=== PATIENT | female | born 1955 | race Caucasian/White ===

== ENCOUNTER 2019-04-07 14:07 | Inpatient (IN) | payer MEDICARE, BC ==
[~2019-04-07] VITALS: Ht 157.5 cm; Wt 71.7 kg
[2019-04-07 12:30] VITALS: BP 150/98
[2019-04-07] MEDS ORDERED: ACETAMINOPHEN 325 MG TABLET PO PRN (15:30)
[2019-04-07] MEDS ORDERED: BLOOD SUGAR DIAGNOSTIC 1 EACH STRIP IN ONE (15:30)
[2019-04-07] MEDS ORDERED: MAG HYDROX/AL HYDROX/SIMETH 30 ML UDC PO PRN (15:30)
[2019-04-07] MEDS ORDERED: LORAZEPAM 0.5 MG TABLET PO PRN (15:30)
[2019-04-07] MEDS ORDERED: TEMAZEPAM 7.5 MG CAPSULE PO PRN (15:30)
[2019-04-07] MEDS ORDERED: MAGNESIUM HYDROXIDE 30 ML UDC PO PRN (15:30)
[2019-04-07 16:00] VITALS: BP 150/98
[2019-04-07 20:32] VITALS: BP 136/81
[2019-04-07] MEDS ORDERED: AMITRIPTYLINE HCL 10 MG TABLET PO SCH (22:00)
[2019-04-08 08:00] VITALS: BP 149/87
--- NOTE | 2019-04-08 08:01 | NUR ---
WOUND CARE CONSULT: PT REFUSED SKIN ASSESSMENT. ADMISSION PHOTO SHOWS SOME REDNESS UNDER BREAST. RECOMMENDATIONS MADE BASED ON PHOTO DOCUMENTATION. WILL SEE PRN. IN AGREEMENT WITH PLAN OF CARE. CURRENT RUPAL SCORE IS 15.
[2019-04-08] MEDS ORDERED: AMIT10TA6 PO (08:24)
[2019-04-08] MEDS ORDERED: PARO20TA7 PO (08:24)
[2019-04-08] MEDS ORDERED: AMLO10TA4 PO (08:24)
[2019-04-08] MEDS ORDERED: HYDR12.5 PO (08:24)
[2019-04-08] MEDS ORDERED: LOSA100T31 PO (08:24)
[2019-04-08] MEDS ORDERED: Z GUARD REMEDY 2 OZ OINT TP PRN (08:30)
[2019-04-08 08:33] LABS: THYROID STIMULATING HORMONE 1.588 uIU/mL (0.358-3.74)
[2019-04-08] MEDS: HYDROCHLOROTHIAZIDE 25 MG TABLET PO SCH (08:42)
[2019-04-08] MEDS: LOSARTAN POTASSIUM 50 MG TABLET PO SCH (08:42)
[2019-04-08] MEDS: Z GUARD REMEDY 2 OZ OINT TP SCH (08:43)
[2019-04-08] MEDS: AMLODIPINE BESYLATE 10 MG TABLET PO SCH (08:43)
--- NOTE | 2019-04-08 08:43 | NUR ---
PATIENT REFUSED ALL 0900 MEDS INCLUDING ZGUARD APPLICATION
[2019-04-08 08:49] LABS: ALBUMIN 3.2 g/dL (3.4-5.0); BILIRUBIN,TOTAL 0.5 mg/dL (0.2-1.0); CALCIUM, SERUM 9.1 mg/dL (8.5-10.1); CREATININE 0.8 mg/dL (0.6-1.3); PHOSPHORUS 2.9 mg/dL (2.5-4.9); POTASSIUM 3.4 mmol/L (3.5-5.1)
[2019-04-08] MEDS ORDERED: PAROXETINE HCL 10 MG TABLET PO SCH (09:00)
[2019-04-08] MEDS ORDERED: POTASSIUM CHLORIDE 20 MEQ TAB.PRT.SR PO SCH (10:00)
--- NOTE | 2019-04-08 10:30 | NUR ---
PATIENT REFUSED POTASSIUM SUPPLEMENT. EXPLAINED THE IMPORTANCE OF TAKING IT BUT PATIENT CONTINUES TO REFUSE.
[2019-04-08] MEDS: BENZTROPINE MESYLATE (1 MG) 1 MG TABLET PO SCH ×2 (12:00→17:00)
[2019-04-08] MEDS ORDERED: LORAZEPAM 0.5 MG TABLET PO PRN (12:00)
[2019-04-08] MEDS: risperiDONE-M 0.5 MG TAB.RAPDIS PO SCH ×2 (12:00→17:00)
--- NOTE | 2019-04-08 13:40 | NUR ---
PATIENT REFUSED 1300 PSYCH MEDS
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
--- NOTE | 2019-04-08 15:43 | NUR ---
GROUP NOTE: SW encouraged pt to attend group on this present day discussing "discharge planning." Pt unable to attend due to current psychotic symptoms. Pt refusing medications and stating she is dying. SW attempted to provide intervention but pt became mute and did not respond.
[2019-04-08 15:48] VITALS: BP 151/89
--- NOTE | 2019-04-08 18:12 | NUR ---
INFORMED DR CORMIER THIS MORNING THAT PATIENT HALLUCINATES WHEN SHE IS TAKING REMERON AND SEROQUEL. ALSO, PATIENT'S FAMILY WANTED TO SEE HER OUTSIDE VISITING HOURS DUE TO COMMUTE ISSUES. MD ORDERED VISITATION PRIVILEGES OUTSIDE VISITING HOURS. INFORMED DR LAKE THAT PATIENT HAS NOT BEEN EATING OR DRINKING FOR THE PAST FEW DAYS. ALSO THAT SHE REFUSED HER AM BP MEDS ALONG WITH THE POTASSIUM. INFORMED MD THAT PER PATIENT'S SISTER, PATIENT HAS A HISTORY OF DVT AND WAS TAKING XARELTO UP UNTIL A FEW MONTHS AGO AND THAT PATIENT IS REFUSING TO GET OUT OF BED. DR LAKE ORDERED LOVENOX 40 MG SUBCUTANEOUSLY DAILY STARTING TONIGHT.
[2019-04-08 20:12] VITALS: BP 149/96
[2019-04-08] MEDS: ENOXAPARIN SODIUM 40 MG/0.4 ML DISP.SYRIN SQ SCH (21:00)
--- NOTE | 2019-04-08 21:22 | NUR ---
RN NOTES: PT. REFUSED HS MEDS LOVENEX 0.4 ML .SQ, ENCOURAGED X3 , EXPLINED RISKS AND BNEFITS STILL REFUSED .
[2019-04-08 21:30] VITALS: BP 133/82
[2019-04-09 07:48] LABS: CALCIUM, SERUM 9.4 mg/dL (8.5-10.1); CREATININE 0.8 mg/dL (0.6-1.3); POTASSIUM 3.5 mmol/L (3.5-5.1)
[2019-04-09 08:00] VITALS: BP 151/94
[2019-04-09] MEDS: BENZTROPINE MESYLATE (1 MG) 1 MG TABLET PO SCH ×2 (08:30→17:00)
[2019-04-09] MEDS: LOSARTAN POTASSIUM 50 MG TABLET PO SCH (08:30)
[2019-04-09] MEDS: HYDROCHLOROTHIAZIDE 25 MG TABLET PO SCH (08:30)
[2019-04-09] MEDS: Z GUARD REMEDY 2 OZ OINT TP SCH (08:30)
[2019-04-09] MEDS: risperiDONE-M 0.5 MG TAB.RAPDIS PO SCH ×2 (08:30→17:00)
[2019-04-09] MEDS: AMLODIPINE BESYLATE 10 MG TABLET PO SCH (08:30)
--- NOTE | 2019-04-09 08:30 | NUR ---
PATIENT REFUSED ALL OF 0900 MEDS INCLUDING BP MEDS. EXPLAINED THE IMPORTANCE OF TAKING THE MEDICATIONS BUT PATIENT CONTINUES TO REFUSE. PATIENT STATES THAT SHE CANT SWALLOW BUT WHEN I OFFER TO CRUSH HER PILLS SHE CONTINUES TO REFUSE AND WANTS ME TO LEAVE THE ROOM. ALSO EXPLAINED THE IMPORTANCE OF LOVENOX BUT PATIENT DOES NOT WANT TO BE BOTHERED. PATIENT IS REFUSING FULL BODY SKIN ASSESSMENT ALONG WITH CARE FOR ADL.
[2019-04-09] MEDS ORDERED: IV D5/0.45 NACL 1,000 ML IV SCH (09:30)
[2019-04-09] MEDS ORDERED: IV D5/0.45 NACL 1,000 ML IV ONE (09:30)
--- NOTE | 2019-04-09 09:53 | NUR ---
INITIAL DISCHARGE PLAN: Per sister Vidya [phone] pt currently lives at home [address] [place] [address] with her ex boyfriend but needs placement as pt is unable to care for herself. SAMUEL will help form a safe and proper discharge in collaboration with .
--- NOTE | 2019-04-09 11:12 | NUR ---
UR NOTE: AUTHORIZATION#[id number] OBTAINED FROM LAQUITA Lawrence WITH [facility] AT [phone]. 3 DAYS APPROVED FROM 04/10/2019 TO 04/12/2019. WITH REVIEW DUE ON Monday04/12/2019.
--- NOTE | 2019-04-09 12:58 | NUR ---
DR LAKE AWARE THAT PATIENT IS REFUSING ALL MEDS INCLUDING LOVENOX ALONG WITH PLAN OF CARE. IVF ORDERED (D5 1/2 NS) AT 80CC/HR. IV STARTED AT PATIENT'S RFA. DR CORMIER ALSO AWARE OF PATIENT'S CONDITION AND REFUSAL OF MEDICATIONS.
[2019-04-09 16:00] VITALS: BP 151/99
--- NOTE | 2019-04-09 19:12 | NUR ---
INFORMED DR CORMIER PATIENT HAS REACTION TO CERTAIN DRUGS. PER FAMILY, PATIENT HAS HALLUCINATIONS WITH TRAZODONE AND SEIZURES WITH HALDOL.
[2019-04-09 20:30] VITALS: BP 152/92
[2019-04-09] MEDS: ENOXAPARIN SODIUM 40 MG/0.4 ML DISP.SYRIN SQ SCH (22:30)
[2019-04-10 08:00] VITALS: BP 158/97
[2019-04-10] MEDS: HYDROCHLOROTHIAZIDE 25 MG TABLET PO SCH (08:24)
[2019-04-10] MEDS: BENZTROPINE MESYLATE (1 MG) 1 MG TABLET PO SCH ×2 (08:24→16:42)
[2019-04-10] MEDS: LOSARTAN POTASSIUM 50 MG TABLET PO SCH (08:24)
[2019-04-10] MEDS: AMLODIPINE BESYLATE 10 MG TABLET PO SCH (08:25)
[2019-04-10] MEDS: Z GUARD REMEDY 2 OZ OINT TP SCH (08:25)
[2019-04-10] MEDS: risperiDONE-M 0.5 MG TAB.RAPDIS PO SCH ×2 (08:25→16:42)
[2019-04-10] MEDS ORDERED: IV D5/0.45 NACL 1,000 ML IV ONE (10:00)
[2019-04-10 12:24] LABS: BASOPHILS # (AUTO) 0.1 /CMM (0.0-0.2); HEMATOCRIT 45 % (33-45); HEMOGLOBIN 15.2 g/dL (11.5-14.8); LYMPHOCYTES # (AUTO) 0.5 /CMM (0.8-4.8); LYMPHOCYTES % (AUTO) 4.9 % (20.0-44.0); MEAN CORPUSCULAR HGB CONC 34 g/dl (31.0-36.0); MEAN CORPUSCULAR VOLUME 90 fL (82-100); MONOCYTES # (AUTO) 0.4 /CMM (0.1-1.30); MONOCYTES % (AUTO) 4.4 % (2.0-12.0); NEUTROPHILS # (AUTO) 8.6 /CMM (1.8-8.9); NEUTROPHILS % (AUTO) 89.7 % (43.0-81.0); PLATELET COUNT (AUTO) 377 /CMM (150-450); RED BLOOD CELL COUNT(AUTO) 5.04 MIL/uL (4.0-5.2); WHITE BLOOD COUNT (AUTO) 9.6 K/uL (4.3-11.0)
[2019-04-10 12:37] LABS: ALBUMIN 3.3 g/dL (3.4-5.0); BILIRUBIN,TOTAL 0.5 mg/dL (0.2-1.0); CALCIUM, SERUM 9.2 mg/dL (8.5-10.1); CREATININE 0.8 mg/dL (0.6-1.3); MAGNESIUM 2.2 mg/dL (1.8-2.4); PHOSPHORUS 2.1 mg/dL (2.5-4.9); POTASSIUM 3.1 mmol/L (3.5-5.1)
[2019-04-10 12:47] LABS: THYROID STIMULATING HORMONE 0.724 uIU/mL (0.358-3.74)
[2019-04-10] MEDS ORDERED: K PHOS NEUTRAL 250 MG TABLET PO ONE (15:30)
[2019-04-10 16:00] VITALS: BP 158/97
--- NOTE | 2019-04-10 19:50 | NUR ---
RN GPS NOTES RECEIVED ON BED,NON VERBAL,OPEN EYES TO VERBAL STIMULI.PRESENTLY ON IVF D5 1/2 NS AT 75ML/HR RATE DUE TO ABNORMAL LABS.REFUSED MEDS, FOODS.REISE CASE JUST FILED TODAY.WILL CONTINUE TO MONITOR STATUS.
[2019-04-10 20:26] VITALS: BP 157/86
--- NOTE | 2019-04-10 21:00 | NUR ---
GPS RN NOTES DUE LOVENOX 40MG SQ GIVEN ON LEFT LOWER ABDOMEN.PLATELET WITH IN NORMAL LIMITS
[2019-04-10] MEDS: ENOXAPARIN SODIUM 40 MG/0.4 ML DISP.SYRIN SQ SCH (21:28)
--- NOTE | 2019-04-11 03:00 | NUR ---
GPS RN NOTES CALM AND QUIET ON BED,EYES OPEN
[2019-04-11 08:00] VITALS: BP 158/82
[2019-04-11] MEDS: BENZTROPINE MESYLATE (1 MG) 1 MG TABLET PO SCH ×2 (09:00→17:00)
[2019-04-11] MEDS: AMLODIPINE BESYLATE 10 MG TABLET PO SCH (09:00)
[2019-04-11] MEDS: LOSARTAN POTASSIUM 50 MG TABLET PO SCH (09:00)
[2019-04-11] MEDS: risperiDONE-M 0.5 MG TAB.RAPDIS PO SCH ×2 (09:00→17:00)
[2019-04-11] MEDS: Z GUARD REMEDY 2 OZ OINT TP SCH (09:00)
[2019-04-11] MEDS: HYDROCHLOROTHIAZIDE 25 MG TABLET PO SCH (09:00)
--- NOTE | 2019-04-11 11:33 | NUR ---
FAMILY CONTACT: SAMUEL spoke with pts sister Vidya [phone] to inform her MD has filed a RIESE petition for medication capacity. Sister agreed with treatment plan.
--- NOTE | 2019-04-11 14:00 | NUR ---
rn note spoke with Dr Farris re potassium being low yesterday, and not replaced, pt refusing po meds, and any food or drink. for the past week or so, that she had d51/2 ns 1L yesterday, and no orders for labs today. he said he will order ivf and labs. will carry out order.
[2019-04-11 16:00] VITALS: BP 158/79
[2019-04-11] MEDS: ENOXAPARIN SODIUM 40 MG/0.4 ML DISP.SYRIN SQ SCH (20:30)
[2019-04-11 20:48] VITALS: BP 150/79
--- NOTE | 2019-04-12 05:49 | NUR ---
rn gps notes ivf complete iv site to right FA removed, no redness, no infiltration present.
--- NOTE | 2019-04-12 07:30 | NUR ---
INITIAL Dr Farris aware of potassium being low yesterday, and not replaced, pt refusing breakfast. Reported for the past week or so pt does not want to eat. RFA PIV was removed last night not replaced fluids stopped. pt resting in bed respiration even responses to name will continue to monitor.
[2019-04-12 07:54] LABS: BASOPHILS # (AUTO) 0.1 /CMM (0.0-0.2); BASOPHILS % (AUTO) 0.8 % (0.0-2.0); EOSINOPHILS % (AUTO) 0.2 % (0.0-6.0); HEMATOCRIT 42 % (33-45); HEMOGLOBIN 14.1 g/dL (11.5-14.8); LYMPHOCYTES # (AUTO) 0.6 /CMM (0.8-4.8); LYMPHOCYTES % (AUTO) 9.6 % (20.0-44.0); MEAN CORPUSCULAR HGB CONC 33 g/dl (31.0-36.0); MEAN CORPUSCULAR VOLUME 91 fL (82-100); MONOCYTES # (AUTO) 0.4 /CMM (0.1-1.30); MONOCYTES % (AUTO) 5.3 % (2.0-12.0); NEUTROPHILS # (AUTO) 5.6 /CMM (1.8-8.9); NEUTROPHILS % (AUTO) 84.1 % (43.0-81.0); PLATELET COUNT (AUTO) 300 /CMM (150-450); RED BLOOD CELL COUNT(AUTO) 4.68 MIL/uL (4.0-5.2); WHITE BLOOD COUNT (AUTO) 6.7 K/uL (4.3-11.0)
[2019-04-12 07:55] LABS: CALCIUM, SERUM 8.4 mg/dL (8.5-10.1); CREATININE 0.7 mg/dL (0.6-1.3); MAGNESIUM 2.2 mg/dL (1.8-2.4); PHOSPHORUS 2.2 mg/dL (2.5-4.9); POTASSIUM 3.5 mmol/L (3.5-5.1)
[2019-04-12 08:00] VITALS: BP 158/87
[2019-04-12] MEDS: HYDROCHLOROTHIAZIDE 25 MG TABLET PO SCH (09:00)
[2019-04-12] MEDS: LOSARTAN POTASSIUM 50 MG TABLET PO SCH (09:00)
[2019-04-12] MEDS: AMLODIPINE BESYLATE 10 MG TABLET PO SCH (09:00)
[2019-04-12] MEDS: BENZTROPINE MESYLATE (1 MG) 1 MG TABLET PO SCH ×2 (09:00→16:12)
[2019-04-12] MEDS: risperiDONE-M 0.5 MG TAB.RAPDIS PO SCH ×3 (09:00→21:00)
[2019-04-12] MEDS: Z GUARD REMEDY 2 OZ OINT TP SCH (09:02)
--- NOTE | 2019-04-12 09:11 | NUR ---
PT REFUSED ALL MEDICATIONS CALL MEDICAL MANAGEMENT THROUGH [facility]
--- NOTE | 2019-04-12 10:02 | NUR ---
PT REFUSED PO POTASSIUM
--- NOTE | 2019-04-12 10:08 | NUR ---
STILL WAITNG FOR OSWALDO, PA CALL BACK
--- NOTE | 2019-04-12 11:09 | NUR ---
PATIENCE CHACON ORDERED PIV WITH D5W AND KCL PT HAS NO IV CURRENTLY
[2019-04-12] MEDS ORDERED: Potassium Chloride 40 MEQ in IV D5W 1,000 ML IV PRN (11:30)
[2019-04-12] MEDS ORDERED: K PHOS NEUTRAL 250 MG TABLET PO ONE (12:00)
--- NOTE | 2019-04-12 12:49 | NUR ---
UR NOTE: AUTHORIZATION#[id number] OBTAINED FROM [place] WITH [facility] AT [phone]. 3 DAYS APPROVED FROM 04/13/2019 TO 04/15/2019. WITH REVIEW DUE ON Monday04/15/2019.
--- NOTE | 2019-04-12 12:52 | NUR ---
FAMILY CONTACT: SAMUEL contacted pts sister Vidya [phone] and left a voicemail informing her pt is now RIESED.
--- NOTE | 2019-04-12 15:12 | NUR ---
ESTABLISHED PIV # 20 GAUGE IN LEFT ARM. WILL START FLUIDS WHEN SITE MEDICAL DIRECTOR AVAILABLE PT AGITATED AND NEEDS TO BE WATCHED.
[2019-04-12 16:00] VITALS: BP 163/92
[2019-04-12] MEDS: OLANZAPINE 10 MG VIAL IM PRN (16:10)
--- NOTE | 2019-04-12 19:13 | NUR ---
CLOSING PT KEPT SAFE PIV STARTED ON FLUID DRIP D5W WITH 40 MEQ OF K TRA 80 ML/HR. PT REFUSED MEDICATIONS AND FOOD ALL SHIFT MD AWARE.
[2019-04-12 21:13] VITALS: BP 153/78
[2019-04-12] MEDS: ENOXAPARIN SODIUM 40 MG/0.4 ML DISP.SYRIN SQ SCH (21:19)
[2019-04-13 08:00] VITALS: BP 157/78
[2019-04-13] MEDS: LOSARTAN POTASSIUM 50 MG TABLET PO SCH (08:12)
[2019-04-13] MEDS: HYDROCHLOROTHIAZIDE 25 MG TABLET PO SCH (08:12)
[2019-04-13] MEDS: AMLODIPINE BESYLATE 10 MG TABLET PO SCH (08:13)
[2019-04-13] MEDS: BENZTROPINE MESYLATE (1 MG) 1 MG TABLET PO SCH ×2 (08:13→17:00)
[2019-04-13] MEDS: risperiDONE-M 0.5 MG TAB.RAPDIS PO SCH ×2 (08:13→21:00)
--- NOTE | 2019-04-13 08:13 | NUR ---
GPS RN NOTE: PT REFUSED ALL AM MEDICATIONS. PT REEDUCATED AND EXPLAINED RISKS AND BENEFITS. ELGIN EXPLAINED. PATIENT CONTINUE TO REFUSE. PATIENT IS ALSO REFUSING TO EAT BREAKFAST. COVERING HER MOUTH. WITH 1:1 SITTER. WILL CONTINUE TO MONITOR Q15 FOR SAFETY AND BEHAVIOR
[2019-04-13] MEDS: OLANZAPINE 10 MG VIAL IM PRN ×2 (08:45→20:36)
[2019-04-13] MEDS: Z GUARD REMEDY 2 OZ OINT TP SCH (09:56)
[2019-04-13 11:12] LABS: BASOPHILS % (AUTO) 0.7 % (0.0-2.0); EOSINOPHILS % (AUTO) 2.3 % (0.0-6.0); HEMATOCRIT 43 % (33-45); HEMOGLOBIN 14.5 g/dL (11.5-14.8); LYMPHOCYTES # (AUTO) 0.7 /CMM (0.8-4.8); LYMPHOCYTES % (AUTO) 11.1 % (20.0-44.0); MEAN CORPUSCULAR HGB CONC 34 g/dl (31.0-36.0); MEAN CORPUSCULAR VOLUME 91 fL (82-100); MONOCYTES # (AUTO) 0.3 /CMM (0.1-1.30); NEUTROPHILS # (AUTO) 5.5 /CMM (1.8-8.9); NEUTROPHILS % (AUTO) 81.9 % (43.0-81.0); PLATELET COUNT (AUTO) 285 /CMM (150-450); RED BLOOD CELL COUNT(AUTO) 4.71 MIL/uL (4.0-5.2); WHITE BLOOD COUNT (AUTO) 6.7 K/uL (4.3-11.0)
[2019-04-13 11:32] LABS: CALCIUM, SERUM 8.7 mg/dL (8.5-10.1); CREATININE 0.7 mg/dL (0.6-1.3); MAGNESIUM 2.2 mg/dL (1.8-2.4); PHOSPHORUS 2.4 mg/dL (2.5-4.9); POTASSIUM 3.7 mmol/L (3.5-5.1)
--- NOTE | 2019-04-13 15:44 | NUR ---
SPOKE TO DON TAX COLLECTOR OF [facility] AND PT. GOT ACCEPTED UNDER THE SERVICES OF DR. CARLOS TAVERA. DR. REED MADE AWARE AND ORDERED TO D/C PT/ TO [facility], [facility] UN[facility] UNDER THE SERVICES OF DR. CARLOS TAVERA. LEONARD NUNEZ MADE AWARE. Addendum: 04/13/19 at 1556 by PINKY CASTANEDA RN THIS DOCUMENTATION IS NOT FOR THIS PT.
[2019-04-13 16:00] VITALS: BP 164/98
[2019-04-13 20:21] VITALS: BP 155/65
--- NOTE | 2019-04-13 20:27 | NUR ---
RN NOTES PATIENT REFISED RISPERDAL-M 1MG PO. ZYPREXA 3MG IM GIVEN ORDERED
[2019-04-13] MEDS: ENOXAPARIN SODIUM 40 MG/0.4 ML DISP.SYRIN SQ SCH (20:37)
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
[2019-04-14 08:00] VITALS: BP 149/84
[2019-04-14] MEDS: BENZTROPINE MESYLATE (1 MG) 1 MG TABLET PO SCH ×2 (08:53→17:00)
[2019-04-14] MEDS: HYDROCHLOROTHIAZIDE 25 MG TABLET PO SCH (08:56)
[2019-04-14] MEDS: LOSARTAN POTASSIUM 50 MG TABLET PO SCH (08:56)
[2019-04-14] MEDS: risperiDONE-M 0.5 MG TAB.RAPDIS PO SCH (08:57)
[2019-04-14] MEDS: AMLODIPINE BESYLATE 10 MG TABLET PO SCH (08:57)
[2019-04-14] MEDS: Z GUARD REMEDY 2 OZ OINT TP SCH (08:58)
[2019-04-14] MEDS: OLANZAPINE 10 MG VIAL IM PRN (09:02)
--- NOTE | 2019-04-14 09:03 | NUR ---
RN NOTES PATIENT REFUSED TO TAKE SCHEDULED MEDICATION, EVEN REFUSED TO TALK, EAT AND DRINK. ADMINISTERED ZYPREXA 3 MG/ML IM PRESCRIBED PER REFUSAL SCHEDULED PO MEDICATION. 1;1 SITTER NEXT TO THE BED. SAFETY PRECAUTION MAINTAINED ALL THE TIME.
--- NOTE | 2019-04-14 15:50 | NUR ---
RN NOTES TRANSFERRED PATIENT TO THE GP OVF ROOM 206 A. PATIENT STABLE, A/O X1, ON MOOD SELECTIVELY MOOT, FLAT AFFECT, V/S WNL, NO ACUTE RESPIRATORY DISTRESS, 1:1 SITTER NEXT TO THE BED FOR SAFETY. REPORT GIVEN FRANCISCA THOMPSON TO FOLLOW PLAN OF CARE.
--- NOTE | 2019-04-14 15:50 | NUR ---
RN NOTES: GPS OVERFLOW RECEIVED PATIENT FROM 220-1. REPORT GIVEN BY FRANCISCA ZUNIGA. PATIENT IS AWAKE, SELECTIVELY MUTE. NODS HEAD TO YES OR NO QUESTIONS. FOLLOWS COMMAND. NOT IN ANY FORM OF DISTRESS. NO SOB. NO S/S OF PAIN OR DISCOMFORT. IV ACCESS ON LEFT FA GAUGE 20, INTACT AND PATENT, NO REDNESS, NO INFILTRATION. KEPT PATIENT SAFE AND COMFORTABLE. NO SI/HI NOTED. BED IN LOW AND LOCKED POSITION. SIDERAILS UPX2. SITTER AT BEDSIDE FOR SAFETY. WILL CONT TO MONITOR ACCORDINGLY
[2019-04-14 16:00] VITALS: BP 143/73
--- NOTE | 2019-04-14 19:08 | NUR ---
rn notes Ayad Farris spoke with family, Vidya Vo, and explained that patient needs NGTube for feeding. Family gave authorization for NGtube placement.
--- NOTE | 2019-04-14 19:10 | NUR ---
rn notes Ayad Farris DNP at bedside doing NGtube placement. Ngtube was successfully placed. Xray for confirmation of placement ordered.
--- NOTE | 2019-04-14 19:29 | NUR ---
RN NOTES PATIENT IN STABLE CONDITION. ALL NEEDS ATTENDED AND PROVIDED. SITTER AT BEDSIDE FOR SAFETY. BED IN LOW/LOCKED POSITION. ENDORSDED TO NIGHT RN FOR LOLA.
--- NOTE | 2019-04-14 20:00 | NUR ---
RN NOTES DISCHARGED PATIENT TO [facility]. SAME ROOM 206-1. DISCHARGED INSTRUCTIONS GIVEN. DC PAPERWORKS AND ALL BELONGINGS TRANFERRED WITH THE PATIENT TO [facility] FLOOR. REFUSED SKIN PHOTOS.REPORT GIVEN TO FRANCISCA HYMAN. CONTINUE HOLD AND CONTINUE PSYCH MEDS
[2019-04-15] MEDS ORDERED: LORA-259 PO (07:45)
[2019-04-15] MEDS ORDERED: RISP0.2515 PO (07:45)
[2019-04-15] MEDS ORDERED: ENOX40DI9 SQ (07:45)
[2019-04-15] MEDS ORDERED: ACET-868 PO (07:45)
[2019-04-15] MEDS ORDERED: BENZ0.5T43 PO (07:45)
[2019-04-15] MEDS ORDERED: MAG30ORA PO (07:45)
[2019-04-15] MEDS ORDERED: TEMA7.5C12 PO (07:45)
[2019-04-15] MEDS ORDERED: MAGN400O6 PO (07:45)
[2019-04-15] MEDS ORDERED: OLAN10VI IM (07:45)
[2019-04-15] MEDS ORDERED: ALLA266C2 TP (07:45)
[2019-04-19] MEDS ORDERED: RISP1TAB7 PO (11:03)
== END 2019-04-14 19:00 | disposition short-term general hospital (02) | DRG 885 ==
LOC: GPS 14:07 → GPSOV2 04-14 15:29
PROVIDERS: ADMIT Psychiatry & Neurology Psychosomatic Medicine; ATTEND Nurse Practitioner Acute Care
DX: F25.0 Schizoaffective disorder, bipolar type (principal); E44.1 Mild protein-calorie malnutrition; I10 Essential (primary) hypertension; E86.0 Dehydration; Z73.6 Limitation of activities due to disability; F43.10 Post-traumatic stress disorder, unspecified; Z86.718 Personal history of other venous thrombosis and embolism; Z91.14 Patient's other noncompliance with medication regimen; E88.09 Other disorders of plasma-protein metabolism, not elsewhere classified; Z68.28 Body mass index [BMI] 28.0-28.9, adult
CPT/HCPCS: 36415; 71045-TC; 80048-TC; 80053-TC; 80061-TC; 82962-TC; 83735-TC; 84100-TC; 84443-TC; 85025-TC; 87081-TC; J1650; J3480; J3490; J7070

== ENCOUNTER 2019-04-14 19:32 | Inpatient (IN) | payer MEDICARE, BC ==
[~2019-04-14] VITALS: Ht 152.4 cm; Wt 71.7 kg
--- NOTE | 2019-04-14 19:00 | NUR ---
ADMISSION NOTES: RECEIVED REPORT FROM JAY ESPINOSA. PT FROM GPS OVERFLOW, DR CHACON INSERTED NGTUBE ON RIGHT NARE WITH ORDER FOR STAT XRAY FOR PLACEMENT CONFIRMATION. MD HAS WRITTEN ORDERS TO ADMIT PT FOR MED SURG. PT IS FLAT AFFECT, REFUSING TO EAT OR DRINK FOR WEEKS NOW. MD SPOKED WITH PT'S FAMILY ABOUT PLAN OF CARE. NOTIFIED ADMITTING OF THE CHANGE IN LEVEL OF CARE AND ADMITTING MD, SERENA. SITTER AT BED SIDE. BILATERAL SOFT WRIST RESTRAINT IN PLACED, PT ABLE TO MOVE AND WIGGLE ARMS AND HANDS, WITH GOOD CAPILLARY REFILL NOTED. RADIAL PULSES PALPABLE AND INTACT. SAFETY PRECAUTIONS FOR FALL INITIATED, CALL LIGHT IN REACH, WILL CONTINUE MONITORING PT.
--- NOTE | 2019-04-14 19:05 | NUR ---
RN NOTES: CALL LIGHT WAS REMOVED, FOR SAFETY PURPOSES. IV ACCESS COVERED WITH BROWN SLEEVE. SITTER AT BED SIDE, PT ON 5250 HOLD. WILL CONTINUE MONITORING PT [id number] FOR SAFETY AND ANY CHANGES IN BEHAVIOR.
--- NOTE | 2019-04-14 19:10 | NUR ---
RN NOTES: RECEIVED CALL FROM PT'S SISTER, ANGELIA. GIVEN UPDATE ABOUT THE PT, NOTIFIED ABOUT RESTRAINTS ORDER AND ITS PURPOSE FOR SAFETY. PER SISTER SHE MIGHT COME TONIGHT OR TOMORROW, BUT HER DAUGHTER WILL SURELY COME AND VISIT ON MONDAY MORNING. NO FURTHER QUESTIONS. ANSWERED ALL QUESTION.
--- NOTE | 2019-04-14 19:15 | NUR ---
RN NOTES: CALLED BY SUZAN MCKENNA STATED THAT AFTER XRAY WAS DONE, THEY FOUND THE NGTUBE INSIDE PT'S MOUTH. NGTUBE REMOVED. TRIED TO REINSERT BUT UNSUCCESSFUL. PT DOESN'T FOLLOW COMMAND, AND TUBE KEPT COMING OUT OF HER MOUTH. WILL TRY AGAIN LATER. WILL LET PT REST CRTING AND STARTING TO BE IRRITATED.
--- NOTE | 2019-04-14 19:20 | NUR ---
RN NOTES: PER DAY FRANCISCA THOMPSON, REASON FOR PUTTING BILATERAL SOFT WRIST RESTRAINT IS THAT AFTER MD INSERTED THE TUBE, PT GRABBED THE TUBE AGAIN TRIED PULLING IT OUT. THEY THEN TRIED SPEAKING WITH THE PT, AND OBSERVE HER BEHAVIOR, UNFORTUNATELY PT UNABLE TO KEEP CONTRACT FOR SAFETY.
[~2019-04-14 19:32] MED LIST: AMIT10TA6 PO; AMLO10TA4 PO; HYDR12.5 PO; LOSA100T31 PO; PARO20TA7 PO
--- NOTE | 2019-04-14 19:51 | NUR ---
RN NOTES: RECEIVED CALL FROM IBRAHIMA FROM RADIOLOGY SAYING NGTUBE NEEDS TO BE ADVANCED. INFORMED IBRAHIMA NO NEED TO ADVANCED PT NGTUBE CAME OUT OF HER MOUTH AFTER XRAY WAS COMPLETED. NGTUBE WAS TAKEN OUT. AND WILL HAVE TO INSERT A NEW ONE. MADE AWARE
[2019-04-14 20:00] VITALS: BP 152/90
--- NOTE | 2019-04-14 20:00 | NUR ---
RN NOTES: PT ON 5250 HOLD, FROM 04/09 TO 04/23. ORIGINAL ORDER FOR HOLD IN CHART.
--- NOTE | 2019-04-14 20:10 | NUR ---
RN NOTES: REISED FILED FOR THE PT SHE'S BEEN REFUSING TO TAKE MEDICATION, REFUSING TO EAT OR DRINK, REFUSING CARE.
[2019-04-14] MEDS ORDERED: LORAZEPAM 0.5 MG TABLET PO PRN (20:30)
[2019-04-14] MEDS ORDERED: ACETAMINOPHEN 325 MG TABLET PO PRN (20:30)
[2019-04-14] MEDS ORDERED: Z GUARD REMEDY 2 OZ OINT TP PRN (20:30)
[2019-04-14] MEDS ORDERED: OLANZAPINE 10 MG VIAL IM PRN (20:30)
--- NOTE | 2019-04-14 20:30 | NUR ---
RN NOTES: TRIED TO REINSERT NGTUBE, 3X BUT UNSUCCESSFUL. NOTED, NOSE BLEEDING, MINIMAL. NOTIFIED MD DR CAHCON. PER DR CHACON, PLEASE ASK ER OR ICU FOR HELP WITH INSERTION. PT NEEDS THE NUTRITION.
[2019-04-14] MEDS ORDERED: risperiDONE-M 0.5 MG TAB.RAPDIS PO SCH (21:00)
[2019-04-14] MEDS ORDERED: ENOXAPARIN SODIUM 40 MG/0.4 ML DISP.SYRIN SQ SCH (21:00)
--- NOTE | 2019-04-14 21:00 | NUR ---
RN NOTES: CONTACTED PHARMACY ABOUT HT AND WEIGHT OF PT
--- NOTE | 2019-04-14 21:10 | NUR ---
RN NOTES: SKIN ASSESSMENT PERFORMED, PLEASE SEE SKIN ASSESSMENT LOG. INVENTORY OF BELONGINGS COMPLETED BY ALFIE MCKENNA. WHEN ASK IF PT HAS ANY PLANS OF HURTING HERSELF, PT DOESNT ANSWER, ONLY FLAT AFFECT, NO VERBAL RESPONSE OBTAINED, AND PT JUST STARING AT THE RN. UNABLE TO GET DEFINITE INFORMATION/ANSWER.
[2019-04-14 21:28] VITALS: BP 152/90
--- NOTE | 2019-04-14 21:45 | NUR ---
rn notes: ngtube inserted on right nare by rn parviz, skin prep applied on nose area prior to securing tube with tape. stat xray for placement confirmation will be order
--- NOTE | 2019-04-14 21:46 | NUR ---
RN NOTES: NGTUBE INSERTED USING FR 14 VIA RIGHT NARE BY FRANCISCA VEGA.
--- NOTE | 2019-04-14 22:16 | NUR ---
rn notes: stat xray to confirm placement of ngtube, will wait for result before administering risperdal
[2019-04-14] MEDS ORDERED: GLUCERNA 1.5 1,000 ML BOTTLE NG PRN (22:30)
--- NOTE | 2019-04-14 22:40 | NUR ---
RN NOTES: PT TRIED PULLING OUT NGTUBE EVEN THOUGH SHE'S ON RESTRAINT, PT IS VERY STRONG, ABLE TO ARCH/CURVE HER BODY INTO POSITION TRYING TO REACH THE NOSE WITH THE TUBE. SITTER CAUGHT IT PT UNSUCCESSFUL IN REMOVING NGTUBE
--- NOTE | 2019-04-14 22:56 | NUR ---
RN NOTES: RESULT OF CXR CAME BACK. result as follow: Nasogastric tube is distal to the GE junction. called xray department, spoked with henrry plascencia to use per rd
--- NOTE | 2019-04-14 23:05 | NUR ---
rn notes: no available glucerna 1.5, only glucerna 1.2. md made aware of this and the result of xr, per md will give glucerna 1.2 at 30ml/hr. order read back verified and carried out.
[2019-04-14 23:30] VITALS: BP 157/89
--- NOTE | 2019-04-14 23:30 | NUR ---
RN NOTES: PT'S ABDOMEN SOFT TO TOUCH WITH ACTIVE BOWEL SOUND HEARD UPON AUSCULTATION. CHECKED PLACEMENT OF NGTUBE, ASPIRATE FOR ANY RESIDUAL, NO RESIDUAL OBTAINED. NGTUBE ABLE TO FLUSHED WITH 30CC OF WATER WITHOUT MEETING ANY RESISTANCE. CONNECTED TO GTUBE FEEDING GLUCERNA 1.2 AT 30CC/HR.
--- NOTE | 2019-04-14 23:35 | NUR ---
prn olanzapine: pt refused taking risperdal po, instruction is under the tongue but pt doesnt want to take it, or even open her mouth, but agree by nodding to receive im olanzapine. contacted pharmacy, order is 3mg dose. per division chair pharmacy, 3mg dose to withdraw 0.6ml. prn olanzapine im administered. vs taken and recorded.
--- NOTE | 2019-04-14 23:49 | NUR ---
RN NOTES: GIVEN UPDATE TO DR CHACON REGARDING PT, PER MD TO PLEASE MAKE SURE TO KEEP AN EYE ON THE PT. PT HAS EPISODE OF PULLING OUT NG TUBE. NOTIFIED PT HAS 1:1 SITTER AT BED SIDE, AND HIS ORDER FOR BILATERAL SOFT WRIST RESTRAINT WAS ALREADY IN PLACED, CARRIED OUT. PER TO PUT BILATERAL HAND MITTENS TOO, THOSE WILL HELP TREMENDOUSLY TO ENSURE THAT PT WILL NOT BE ABLE TO REMOVE NG-TUBE. ORDER READ BACK, CARRIED OUT. NOTIFIED RN PLASTIC DESIGN APPLIER IVONE, PER IVONE LONG THERE IS A SITTER, IT IS OKAY TO HAVE BILATERAL SOFT WRIST RESTRAINT AND MITTENS AT THE SAME TIME/IN PLACED.
[2019-04-14] MEDS: GLUCERNA 1.2 1,000 ML BOTTLE NG PRN (23:58)
[2019-04-15] MEDS: ENOXAPARIN SODIUM 40 MG/0.4 ML DISP.SYRIN SQ SCH ×2 (00:10→21:03)
[2019-04-15 00:47] VITALS: BP 148/88
--- NOTE | 2019-04-15 06:45 | NUR ---
RN NOTES: PT HASNT VOID, OFFERED BED MAGAÑA, HAVE HER SIT ON IT FOR 15MINS AND NOTHING CAME OUT, DIAPER IS DRY, OFFERED TO GO TO BATHROOM BUT PT REFUSED, BLADDER SCAN PERFORMED, SHOWS 517ML. CONTACTED EPIC MD MACHINE STRAW HAT PRESSER FOR RECOMMENDATION OF STRAIGHT CATHETER, AWAITING CALL BACK
--- NOTE | 2019-04-15 07:40 | NUR ---
RN CLOSING NOTES: PT REMAINS FLAT AFFECT, SLOW TO RESPOND, NOT ANSWERING QUESTIONS WHEN ASKED. SOMETIMES WILL NODD, BUT MOST OF THE TIME, NO DEFINITE ANSWER OBTAINED FROM PT. NGTUBE INSERTED ON RIGTH NARES, REMAINS IN PLACED,PT REMAINS TO HAVE SOFT ABDOMEN, WITH ACTIVE BOWEL SOUND HEARD UPON AUSCULTATION. GTUBE RESIDUAL OBTAINED IS 20ML.PT RECEIVING NGTUBE FEEDING OF GLUCERNA 1.2 AT 30ML/HR. BILATERAL SOFT WRIST RESTRAINTS AND HAND MITTENS REMAINS IN PLACED,RESTRAINT PROTOCOL FOLLOWED. PT ABLE TO MOVE AND WIGGLE ARMS, GOOD CAPILLARY REFILL NOTED, RADIAL PULSES REMAINS INTACT AND PALPABLE.KEPT HOB 30 DEGREES TO PREVENT ASPIRATION WHILE ON FEEDING. SUCTION SET UP REMAINS IN PLACED, ON STANDBY,FOR SAFETY PURPOSES PT ON ASPIRATION PRECAUTION. AWAITING FOR MD TO CALL BACK REGARDING CATHETER. RELAYED TO FRANCISCA ZUNIGA.VS REMAINS STABLE, NEEDS ATTENDED. SAFETY PRECAUTIONS FOR FALL REMAINS ENGAGED, SITTER REMAINS AT BED SIDE. ENDORSED TO FRANCISCA ZUNIGA FOR LOLA.
[2019-04-15] MEDS ORDERED: ALLA266C2 TP (07:45)
[2019-04-15] MEDS ORDERED: MAG30ORA PO (07:45)
[2019-04-15] MEDS ORDERED: ENOX40DI9 SQ (07:45)
[2019-04-15] MEDS ORDERED: MAGN400O6 PO (07:45)
[2019-04-15] MEDS ORDERED: RISP0.2515 PO (07:45)
[2019-04-15] MEDS ORDERED: BENZ0.5T43 PO (07:45)
[2019-04-15] MEDS ORDERED: LORA-259 PO (07:45)
[2019-04-15] MEDS ORDERED: ACET-868 PO (07:45)
[2019-04-15] MEDS ORDERED: OLAN10VI IM (07:45)
[2019-04-15] MEDS ORDERED: TEMA7.5C12 PO (07:45)
[2019-04-15 08:00] VITALS: BP 155/64
--- NOTE | 2019-04-15 08:00 | NUR ---
RN NOTES RECEIVED PATIENT IN THE ROOM ON SELECTIVELY MOOT REFUSED TO TALK, EAT AND DRINK. NO ACUTE RESPIRATORY DISTRESS BREATHING UNLABORED. NG TUBE INTACT, 10 CC OF RESIDUAL, AND PLACEMENT CHECKED. ADMINISTERED SCHEDULED MEDICATION VIA NG TUBE. KEEP HOB ELEVATED FOR ASPIRATION PRECAUTION, V/S STABLE. PATIENT ON SOFT RESTRAIN, AND MITTENS ON ORDER OF DNP OSWALDO BECAUSE OF TRYING TO REMOVE NG TUBE, CIRCULATION CHECKED Q 2 HR. PER NIGHT NURSE DONE BLADDER SCAN AND 517 ML OF URINE RETAINING. GET MD ORDER FOR IN AND OUT CATH. ASSIST PATIENT TURN AND REPOSTION Q 2HR. NEEDS ATTENDED AND ANTICIPATED. 1:1 SITTER NEXT TO THE BED FOR SAFETY. CALL LIGHT WITHIN TO REACH.CONTINUED MONITORING.
[2019-04-15] MEDS: BENZTROPINE MESYLATE (1 MG) 1 MG TABLET PO SCH ×2 (08:33→17:19)
[2019-04-15] MEDS: AMLODIPINE BESYLATE 5 MG TABLET PO SCH (08:33)
[2019-04-15] MEDS: HYDROCHLOROTHIAZIDE 25 MG TABLET PO SCH (08:34)
[2019-04-15] MEDS: Z GUARD REMEDY 2 OZ OINT TP SCH (08:35)
[2019-04-15] MEDS ORDERED: risperiDONE 1 MG TABLET PO SCH (09:00)
--- NOTE | 2019-04-15 09:45 | NUR ---
RN NOTES IN AND OUT CATHETERIZATION DONE . OUTPUT WAS 800 ML, UA/UC SAMPLE COLLECTED. SEEN PATIENT BY PSYCHIATRIST Dr CORMIER. PATIENT REFUSED TO EAT, AND AMBULATE. SAFETY PRECAUTION MAINTAINED ALL THE TIME.
[2019-04-15] MEDS: risperiDONE 1 MG TABLET PO SCH ×3 (13:41→21:03)
[2019-04-15] MEDS: LORAZEPAM 0.5 MG TABLET PO SCH ×3 (13:41→21:04)
--- NOTE | 2019-04-15 15:00 | NUR ---
RN NOTES PATIENT EAT 10% OF JELLO PER SISTERS HELP, AND 1/2 CUP OF WATER. INFUSING JAVITY 1.2 30 ML/HR ON NG TUBE. PATIENT TOLERATING WELL, HOB ELEVATED FOR ASPIRATION PRECAUTION, CHECKED FOR CIRCULATION ON BOTH ARM RESTRAIN, REDIAL PULSE 2+, CONTINUED MONITORING.
[2019-04-15 15:12] LABS: APPEARANCE,URINE CLEAR (CLEAR); BILIRUBIN,URINE MODERATE (NEGATIVE); BLOOD, URINE NEGATIVE Ery/uL (NEGATIVE); COLOR,URINE YELLOW (YELLOW); KETONES,URINE 40 (NEGATIVE); LEUKOCYTE ESTERASE ,URINE NEGATIVE (NEGATIVE); NITRITE, URINE NEGATIVE (NEGATIVE); PROTEIN,URINE NEGATIVE (NEGATIVE); UGLUCOSE NEGATIVE (NEGATIVE); UROBILINOGEN,URINE 0.2 EU/dL (0.2)
[2019-04-15 15:23] LABS: BACTERIA,URINE 2+ /HPF (None Seen); COARSE GRANULAR CASTS,URINE 0-2 /LPF (None Seen); RBC,URINE 0-2 /HPF (0-2); SQUAMOUS EPITHELIAL CELL,UR Few /HPF (None Seen); WBC,URINE 0-2 /HPF (0-3)
[2019-04-15 16:00] VITALS: BP 113/82
--- NOTE | 2019-04-15 17:20 | NUR ---
RN NOTES ADMINISTERED TYLENOL 650 MG PO PRN FOR GENERALIZED PAIN PER PATIENT REQUEST, V/S STABLE, ASSIST PATIENT TURN AND REPOSITION Q HR, 1: 1 SITTER NEXT TO THE BED FOR SAFETY. HOB KEEP ELEVATED FOR ASPIRATION PRECAUTION. CONTINUED MONITORING.
--- NOTE | 2019-04-15 18:30 | NUR ---
rn notes PATIENT STABLE AT THIS TIME, ASKING FOOD TO EAT, ASSIST TO THE BEDSIDE COMMODE PATIENT ABLE TO URINATE 200 ML AT THIS TIME. NG TUBE INTACT, SOFT RESTRAIN, AND MITTENS INTACT, CHECKED CIRCULATION 2 HR. PATIENT SITTING IN THE BED , MEDICATION WERE ADMINISTERED FOR PAIN EFFECTIVE. CALL LIGHT WITHIN TO REACH. 1:1 SITTER NEXT TO THE BED FOR SAFETY. ENDORSED ONCOMING NURSE FOLLOW PLAN OF CARE.
[2019-04-15] MEDS: diphenhydrAMINE HCL 25 MG CAPSULE PO PRN (21:03)
--- NOTE | 2019-04-15 21:05 | NUR ---
SHOWER; PT TOOK OWN MEDS ORALLY. ATE PUDDING SNACK. PT C/O FEELING ITCHY. PT ASSISTED TO SHOWER WITH RAMON JUDGE VIA W/C D/T WEAKNESS. BED CHANGED RESTRAINTS RELEASED FEEDING TUBE STOPPED. PT IS COMPLIANT. BED LINENS CHANGED. PT RETURNED TO BED. PATIENT GIVEN MEDICATIONS AND TOOK THEM ORALLY WITH MINOR ASSISTANCE. PT IS COOPERATING. PT ATE ENTIRE PUDDING SNACK INDEPENEDENTLY. PT INFORMED THAT BREAKFAST WILL BE ORDERED TOMORROW AND IF SHE TOLERATES EATING THAT THE NG TUBE MIGHT BE REMOVED. PT VERBALIZED UNDERSTANDING. PT STILL PICKING AT NOSE AND PULLING ON NGTUBE. BILAT WRIST RESTRAINTS REAPPLIED. WILL CONT TO MONITOR.
[2019-04-15] MEDS: GLUCERNA 1.2 1,000 ML BOTTLE NG PRN (23:13)
[2019-04-16 07:54] LABS: CREATININE 0.7 mg/dL (0.6-1.3)
[2019-04-16 08:00] VITALS: BP 126/71
--- NOTE | 2019-04-16 08:00 | NUR ---
RN NOTES RECEIVED PATIENT IN THE BED A/O X2/3. ASIST PATIENT TO THE BATHROOM, AND EATING BREAKFAST BY SELF. ADMINISTERED SCHEDULED MEDICATION CRUSHED, AND MIXED TO THE APPLE SAUCE, V/S WNL. 1;1 SITTER NEXT TO THE BED FOR SAFETY. NG TUBE INTACT, SAFETY PRECAUTION MAINTAINED ALL THE TIME.
[2019-04-16] MEDS: risperiDONE 1 MG TABLET PO SCH ×4 (08:17→21:04)
[2019-04-16] MEDS: LORAZEPAM 0.5 MG TABLET PO SCH ×4 (08:18→21:04)
[2019-04-16] MEDS: BENZTROPINE MESYLATE (1 MG) 1 MG TABLET PO SCH ×2 (08:18→17:05)
[2019-04-16] MEDS: HYDROCHLOROTHIAZIDE 25 MG TABLET PO SCH (08:18)
[2019-04-16] MEDS: Z GUARD REMEDY 2 OZ OINT TP SCH (08:19)
[2019-04-16] MEDS: AMLODIPINE BESYLATE 5 MG TABLET PO SCH (08:19)
[2019-04-16 09:07] LABS: POTASSIUM 2.7 mmol/L (3.5-5.1)
--- NOTE | 2019-04-16 09:07 | NUR ---
RN NOTES GET CALL FROM LAB FOR CRITICAL LAB KCL 2.7. NOTIFIED HOSPITALIST FOR ORDERS. CONTINUED MONITORING.
--- NOTE | 2019-04-16 09:30 | NUR ---
rn notes get verbal order from Dr. Riky Perdomo 40 mg po x2 order taken and carried out. Also seen patient by wound nurse. 1:1 sitter next to the bed for safety. NG tube intact, patient more awake, taking medication po , and water intake. assist turn and reposition q 2 hr.call light within to reach, safety precaution maintained all the time.
--- NOTE | 2019-04-16 10:00 | NUR ---
rn notes seen patient by hospitalist Dr Hemalatha Lan, no new orders , continued monitoring.
--- NOTE | 2019-04-16 10:12 | NUR ---
WOUND CARE CONSULT: PT PRESENTS WITH RT BREASTFOLD REDNESS AND RASH, PRESENT ON ADMISSION. RECOMMENDATIONS MADE FOR SKIN PROTECTION AND CARE. DISCUSSED WITH NURSING STAFF. WILL SEE PRN. RODRIGUEZ IN AGREEMENT WITH PLAN OF CARE. Addendum: 04/16/19 at 1013 by CINDI BARTLETT WNDNU Amended: Links added.
[2019-04-16] MEDS ORDERED: POTASSIUM CHLORIDE 20 MEQ TAB.PRT.SR PO ONE ×2 (10:30→11:30)
[2019-04-16 16:00] VITALS: BP 110/67
[2019-04-16] MEDS: CLOTRIMAZOLE 1% 15 GM TUBE TP SCH (17:06)
--- NOTE | 2019-04-16 18:00 | NUR ---
RN NOTES PATIENT IN THE BED STABLE RESTING AFTER SCHEDULED MEDICATION, V/S STABLE, NG TUBE INTACT. PATIENT TOLERATED DINNER 80%, AND TOLERATING WATER WELL. ASSIST TURN AND REPOSTION Q 2 HR. 1:1 SITTER NEXT TO THE BED. PATIENT REFUSED PAIN, REFUSED SI/HI.AVH, CALL LIGHT WITHIN TO REACH. ENDORSED ONCOMING NURSE FOLLOW PLAN OF CARE.
--- NOTE | 2019-04-16 19:20 | NUR ---
RN OPENING NOTES PATIENT IS CURRENTLY IN BED A/O X 2-3. PATIENT ABLE TO EAT APPLE SAUCE, NO DIFFICULTY NOTED. 1:1 SITTER FOR SAFETY. NG TUBE INTACT. SAFETY PRECAUTIONS IMPLEMENTED; CALL LIGHT WITHIN REACH, BED LOCKED, BED LOWEST POSITION, BILATERAL UPPER SIDE RAILS UP. WILL CONTINUE TO MONITOR.
[2019-04-16 20:00] VITALS: BP 106/54
[2019-04-16] MEDS: ENOXAPARIN SODIUM 40 MG/0.4 ML DISP.SYRIN SQ SCH (21:11)
[2019-04-16] MEDS: diphenhydrAMINE HCL 25 MG CAPSULE PO PRN (21:32)
[2019-04-17 06:38] LABS: BASOPHILS % (AUTO) 0.8 % (0.0-2.0); EOSINOPHILS % (AUTO) 2.8 % (0.0-6.0); HEMATOCRIT 40 % (33-45); HEMOGLOBIN 13.5 g/dL (11.5-14.8); LYMPHOCYTES % (AUTO) 18.7 % (20.0-44.0); MEAN CORPUSCULAR HGB CONC 34 g/dl (31.0-36.0); MEAN CORPUSCULAR VOLUME 90 fL (82-100); MONOCYTES # (AUTO) 0.5 /CMM (0.1-1.30); MONOCYTES % (AUTO) 9.2 % (2.0-12.0); NEUTROPHILS # (AUTO) 3.8 /CMM (1.8-8.9); NEUTROPHILS % (AUTO) 68.5 % (43.0-81.0); PLATELET COUNT (AUTO) 247 /CMM (150-450); WHITE BLOOD COUNT (AUTO) 5.5 K/uL (4.3-11.0)
--- NOTE | 2019-04-17 06:43 | NUR ---
RN CLOSING NOTES PATIENT IS CURRENTLY RESTING IN BED, ASLEEP, EASILY AROUSABLE. PATIENT IS STABLE. NG TUBE INTACT. PATIENT ABLE TO TOLERATE CRUSHED MEDS WITH APPLE SAUCE. PATIENT TURNED EVERY 2 HOURS. 1:1 SITTER AT BED SIDE. PATIENT WAS TRYING TO REMOVE IV SITE AND NG TUBE SOMETIME DURING THE SHIFT, STILL REMAINS INTACT. PATIENT DENIES SI/HI. SAFETY PRECAUTIONS IMPLEMENTED; CALL LIGHT WITHIN REACH, BED LOCKED, BED LOWEST POSITION, BILATERAL UPPER SIDE RAILS UP. WILL CONTINUE TO MONITOR. THEN WILL ENDORSE TO DAY SHIFT NURSE FOR CONTINUITY OF CARE.
[2019-04-17 07:00] LABS: CALCIUM, SERUM 8.6 mg/dL (8.5-10.1); CREATININE 0.7 mg/dL (0.6-1.3)
--- NOTE | 2019-04-17 07:10 | NUR ---
MS RN OPENING NOTES PATIENT ASLEEP IN BED, AROUSABLE. RESPONSIVE TO VERBAL AND TACTILE STIMULI. NO SOB. HOB ELEVATED. DENIES ANY C/O PAIN NOR DISCOMFORT. BED IN LOWEST POSITION, LOCKED. BED SIDERAILS UP X2. CALL LIGHT WITHIN REACH. 1:1 SITTER AT BEDSIDE.
[2019-04-17 08:00] VITALS: BP 124/60
[2019-04-17] MEDS: LORAZEPAM 0.5 MG TABLET PO SCH ×4 (08:29→20:53)
[2019-04-17] MEDS: BENZTROPINE MESYLATE (1 MG) 1 MG TABLET PO SCH ×2 (08:30→17:08)
[2019-04-17] MEDS: AMLODIPINE BESYLATE 5 MG TABLET PO SCH (08:30)
[2019-04-17] MEDS: risperiDONE 1 MG TABLET PO SCH ×4 (08:30→20:53)
[2019-04-17] MEDS: HYDROCHLOROTHIAZIDE 25 MG TABLET PO SCH (08:31)
[2019-04-17] MEDS: CLOTRIMAZOLE 1% 15 GM TUBE TP SCH ×2 (08:31→17:13)
[2019-04-17] MEDS: Z GUARD REMEDY 2 OZ OINT TP SCH (08:33)
[2019-04-17] MEDS: GLUCERNA 1.2 1,000 ML BOTTLE NG PRN (09:08)
[2019-04-17] MEDS: POTASSIUM CHLORIDE 20 MEQ TAB.PRT.SR PO SCH ×3 (12:08→15:50)
[2019-04-17 15:53] VITALS: BP 115/70
--- NOTE | 2019-04-17 17:50 | NUR ---
MS RN NOTES PATIENT SEEN BY DR. CORMIER. OBSERVED PATIENT EATING DINNER AND FEEDING SELF WITH NIECE AT BEDSIDE.
[2019-04-17] MEDS: diphenhydrAMINE HCL 25 MG CAPSULE PO PRN (18:31)
--- NOTE | 2019-04-17 18:38 | NUR ---
MS RN CLOSING NOTES PATIENT WITH EPISODE OF SLEEPING THROUGHOUT THE SHIFT BUT AROUSABLE TO VERBAL AND TACTILE STIMULI. NO S/S OF RESPIRATORY DISTRESS. VERBALLY RESPONSIVE. DENIES ANY C/O PAIN NOR DISCOMFORT. LEFT HAND #22 SL INTACT AND PATENT. PATIENT REQUIRES FREQUENT ENCOURAGEMENT, REALITY ORIENTATION AND REMINDERS. INFORMED DR. ABARCA THAT NGT FELL OFF AFTER PHYSICAL THERAPIST WORKED WITH PATIENT, PER MD IF PATIENT EATS DINNER GOOD THEN CAN D/C NGT. SNACKS OFFERED TAKEN WELL. FLUIDS ALSO TAKEN WELL BY PATIENT. 1:1 SITTER AT BEDSIDE, BILATERAL SOFT WRIST RESTRAINT NOT USED DURING THE SHIFT, NOTED PATIENT WITHOUT ANY EPISODES OF PULLING OUT TUBES. PATIENT VISUALLY CHECK. BED IN LOWEST POSITION, LOCKED. BED SIDERAILS UP X2. CALL LIGHT WITHIN REACH. IN NO APPARENT DISTRESS.
--- NOTE | 2019-04-17 19:05 | NUR ---
MS RN NOTE RECEIVED PT IN STABLE CONDITION A/O X2-3, CURRENTLY AWAKE IN BED. SITTER NOTED AT BEDSIDE, STILL ON 5250 HOLD UP ON 04/23/19, MAIDA STATUS. IV IN L HAND #22, IN PLACE. ALL CURRENT NEEDS ATTENDED TO. SAFETY PRECAUTIONS IN PLACE, WILL CONT TO ENCOURAGE PT TO EAT THROUGHOUT SHIFT. WILL CONT TO MONITOR.
[2019-04-17] MEDS: ENOXAPARIN SODIUM 40 MG/0.4 ML DISP.SYRIN SQ SCH (20:54)
--- NOTE | 2019-04-18 06:18 | NUR ---
MS RN NOTE PT REMAINS IN STABLE CONDITION A/O X2-3, CURRENTLY RESTING IN BED. NOTED WITH BILATERAL WRIST RESTRAINTS, ASSESSED PER PROTOCOL, STILL ON 5250 HOLD UP ON 04/23/19, MAIDA STATUS. IV IN L HAND #22, IN PLACE. ALL CURRENT NEEDS ATTENDED TO. SAFETY PRECAUTIONS IN PLACE, PT REPOSITIONED PER PROTOCOL, WILL CONT TO MONITOR.
[2019-04-18 06:29] LABS: BASOPHILS # (AUTO) 0.1 /CMM (0.0-0.2); BASOPHILS % (AUTO) 1.3 % (0.0-2.0); CALCIUM, SERUM 8.7 mg/dL (8.5-10.1); CREATININE 0.7 mg/dL (0.6-1.3); EOSINOPHILS % (AUTO) 4.4 % (0.0-6.0); HEMATOCRIT 38 % (33-45); LYMPHOCYTES # (AUTO) 1.4 /CMM (0.8-4.8); LYMPHOCYTES % (AUTO) 28.1 % (20.0-44.0); MEAN CORPUSCULAR HGB CONC 34 g/dl (31.0-36.0); MEAN CORPUSCULAR VOLUME 90 fL (82-100); MONOCYTES # (AUTO) 0.5 /CMM (0.1-1.30); MONOCYTES % (AUTO) 9.7 % (2.0-12.0); NEUTROPHILS # (AUTO) 2.8 /CMM (1.8-8.9); NEUTROPHILS % (AUTO) 56.5 % (43.0-81.0); PLATELET COUNT (AUTO) 243 /CMM (150-450); POTASSIUM 3.4 mmol/L (3.5-5.1); RED BLOOD CELL COUNT(AUTO) 4.23 MIL/uL (4.0-5.2); WHITE BLOOD COUNT (AUTO) 4.9 K/uL (4.3-11.0)
--- NOTE | 2019-04-18 07:30 | NUR ---
MS RN OPENING NOTES PATIENT ASLEEP IN BED, AROUSABLE TO VERBAL AND TACTILE STIMULI. NO SOB. HOB ELEVATED. DENIES ANY C/O PAIN NOR DISCOMFORT. BED IN LOWEST POSITION, LOCKED. BED SIDERAILS UP X2. CALL LIGHT WITHIN REACH. 1:1 SITTER AT BEDSIDE.
[2019-04-18 08:00] VITALS: BP 123/78
[2019-04-18] MEDS: risperiDONE 1 MG TABLET PO SCH ×4 (08:38→21:42)
[2019-04-18] MEDS: LORAZEPAM 0.5 MG TABLET PO SCH ×4 (08:38→21:42)
[2019-04-18] MEDS: AMLODIPINE BESYLATE 5 MG TABLET PO SCH (08:38)
[2019-04-18] MEDS: HYDROCHLOROTHIAZIDE 25 MG TABLET PO SCH (08:39)
[2019-04-18] MEDS: BENZTROPINE MESYLATE (1 MG) 1 MG TABLET PO SCH ×2 (08:39→17:45)
[2019-04-18] MEDS: Z GUARD REMEDY 2 OZ OINT TP SCH (08:43)
[2019-04-18] MEDS: CLOTRIMAZOLE 1% 15 GM TUBE TP SCH ×2 (08:44→17:47)
[2019-04-18] MEDS ORDERED: POTASSIUM CHLORIDE 20 MEQ TAB.PRT.SR PO SCH (10:00)
[2019-04-18 16:00] VITALS: BP 111/66
--- NOTE | 2019-04-18 17:36 | NUR ---
MS RN NOTES PATIENT SEEN BY DRF. CORMIER, PER PSYCH PATIENT CAN GO BACK TO [facility] IN AM AFTER AM MED PASS
--- NOTE | 2019-04-18 19:20 | NUR ---
MS RN CLOSING NOTES ALERT AND ORIENTED X2-3 WITH EPISODES OF FORGETFULNESS AND CONFUSION. NO S/S OF RESPIRATORY DISTRESS. VERBALLY RESPONSIVE. DENIES ANY C/O PAIN NOR DISCOMFORT. LEFT HAND #22 SL INTACT AND PATENT. PATIENT REQUIRES FREQUENT ENCOURAGEMENT, REALITY ORIENTATION AND REMINDERS. OBSERVED PATIENT WITH GOOD MEAL INTAKE DURING THE SHIFT AND INTERACTS WITH STAFF AND VISITORS. 1:1 SITTER AT BEDSIDE. PATIENT VISUALLY CHECK. BED IN LOWEST POSITION, LOCKED. BED SIDERAILS UP X2. CALL LIGHT WITHIN REACH. IN NO APPARENT DISTRESS.
--- NOTE | 2019-04-18 19:50 | NUR ---
MS RN NOTE: PATIENT RESTING IN BED, NO ACUTE DISTRESS NOTED. BREATHING EVEN AND UNLABORED, NO SOB NOTED. IV TO LEFT HAND IN PLACE. SITTER AT BEDSIDE. BED LOCKED AND IN LOWEST POSITION, CALL LIGHT IN REACH. WILL CONTINUE TO MONITOR.
[2019-04-18 20:00] VITALS: BP 116/64
[2019-04-18] MEDS: ENOXAPARIN SODIUM 40 MG/0.4 ML DISP.SYRIN SQ SCH (21:47)
--- NOTE | 2019-04-19 02:00 | NUR ---
MS RN NOTE: PATIENT SLEEPING IN BED, NO ACUTE DISTRESS NOTED. BREATHING EVEN AND UNLABORED, NO SOB NOTED. IV TO LEFT HAND IN PLACE. SITTER AT BEDSIDE. BED LOCKED AND IN LOWEST POSITION, CALL LIGHT IN REACH. WILL CONTINUE TO MONITOR.
--- NOTE | 2019-04-19 03:00 | NUR ---
MS RN NOTE: PATIENT SLEEPING IN BED, NO ACUTE DISTRESS NOTED. BREATHING EVEN AND UNLABORED, NO SOB NOTED. IV TO LEFT HAND IN PLACE. SITTER AT BEDSIDE. BED LOCKED AND IN LOWEST POSITION, CALL LIGHT IN REACH. WILL ENDORSE TO DAY NURSE TO CONTINUE WITH PLAN OF CARE. Addendum: 04/19/19 at 0629 by LELIA KENNY RN CORRECTION OF TIME, 0620
--- NOTE | 2019-04-19 06:20 | NUR ---
MS RN NOTE: PATIENT SLEEPING IN BED, NO ACUTE DISTRESS NOTED. BREATHING EVEN AND UNLABORED, NO SOB NOTED. IV TO LEFT HAND IN PLACE. SITTER AT BEDSIDE. BED LOCKED AND IN LOWEST POSITION, CALL LIGHT IN REACH. WILL ENDORSE TO DAY NURSE TO CONTINUE WITH PLAN OF CARE.
[2019-04-19 06:27] LABS: BASOPHILS # (AUTO) 0.1 /CMM (0.0-0.2); BASOPHILS % (AUTO) 0.8 % (0.0-2.0); EOSINOPHILS % (AUTO) 3.1 % (0.0-6.0); HEMATOCRIT 41 % (33-45); HEMOGLOBIN 13.7 g/dL (11.5-14.8); LYMPHOCYTES # (AUTO) 1.4 /CMM (0.8-4.8); LYMPHOCYTES % (AUTO) 18.9 % (20.0-44.0); MEAN CORPUSCULAR HGB CONC 34 g/dl (31.0-36.0); MEAN CORPUSCULAR VOLUME 90 fL (82-100); MONOCYTES # (AUTO) 0.5 /CMM (0.1-1.30); MONOCYTES % (AUTO) 6.7 % (2.0-12.0); NEUTROPHILS # (AUTO) 5.3 /CMM (1.8-8.9); NEUTROPHILS % (AUTO) 70.5 % (43.0-81.0); PLATELET COUNT (AUTO) 264 /CMM (150-450); WHITE BLOOD COUNT (AUTO) 7.5 K/uL (4.3-11.0)
[2019-04-19 06:50] LABS: CREATININE 0.8 mg/dL (0.6-1.3); POTASSIUM 3.6 mmol/L (3.5-5.1)
[2019-04-19 08:00] VITALS: BP 109/68
--- NOTE | 2019-04-19 08:00 | NUR ---
MS RN AM NOTES PATIENT ASLEEP IN BED, AROUSABLE. RESPONSIVE TO VERBAL AND TACTILE STIMULI. NO SOB. HOB ELEVATED. DENIES ANY C/O PAIN NOR DISCOMFORT. BED IN LOWEST POSITION, LOCKED. BED SIDERAILS UP X2. CALL LIGHT WITHIN REACH. 1:1 SITTER AT BEDSIDE.
[2019-04-19] MEDS: HYDROCHLOROTHIAZIDE 25 MG TABLET PO SCH (09:00)
[2019-04-19] MEDS: AMLODIPINE BESYLATE 5 MG TABLET PO SCH (09:00)
[2019-04-19] MEDS: BENZTROPINE MESYLATE (1 MG) 1 MG TABLET PO SCH ×2 (09:32→17:32)
[2019-04-19] MEDS: LORAZEPAM 0.5 MG TABLET PO SCH ×4 (09:32→20:11)
[2019-04-19] MEDS: Z GUARD REMEDY 2 OZ OINT TP SCH (09:33)
[2019-04-19] MEDS: risperiDONE 1 MG TABLET PO SCH ×4 (09:33→20:11)
[2019-04-19] MEDS: CLOTRIMAZOLE 1% 15 GM TUBE TP SCH ×2 (09:40→17:35)
[2019-04-19] MEDS ORDERED: RISP1TAB7 PO (11:03)
[2019-04-19 16:00] VITALS: BP 115/78
--- NOTE | 2019-04-19 19:00 | NUR ---
PT WILL BE DISCHARGED TO [facility] ROOM 220 B.ENDORSED TO NIGHT NURSE CARE.
[2019-04-19] MEDS: ENOXAPARIN SODIUM 40 MG/0.4 ML DISP.SYRIN SQ SCH (20:11)
--- NOTE | 2019-04-19 20:49 | NUR ---
MS RECREATIONAL ASSISTANT NOTES Received patient for D/C to [facility] 220B. On RA, no SOB/respiratory distress noted at this time. Denies any discomfort. Poor oral intake. Due meds given as ordered, crushed pills given with apple sauce. Report given to RN Cesar. IV line removed, complete and intact. Discharged patient in stable condition. Discharged papers given to RN.
[2019-04-19] MEDS ORDERED: CLOT15CR35 TP (22:54)
== END 2019-04-19 20:48 | DRG 640 ==
LOC: MEDSG2 19:32
PROVIDERS: ADMIT Nurse Practitioner Acute Care; ATTEND Family Medicine
DX: R62.7 Adult failure to thrive (principal); G93.41 Metabolic encephalopathy; E87.0 Hyperosmolality and hypernatremia; Z91.14 Patient's other noncompliance with medication regimen; F43.10 Post-traumatic stress disorder, unspecified; F25.0 Schizoaffective disorder, bipolar type; I10 Essential (primary) hypertension; Z88.0 Allergy status to penicillin; Z88.2 Allergy status to sulfonamides; F09 Unspecified mental disorder due to known physiological condition; E87.6 Hypokalemia; R79.89 Other specified abnormal findings of blood chemistry
CPT/HCPCS: 36415; 71045-TC; 80048-TC; 81000-TC; 82962-TC; 85025-TC; 87081-TC; 87086-TC; 87186-TC; 97116-TC; 97530-TC; A6253; G0378; J1650; J3490; Q0163

== ENCOUNTER 2019-04-19 21:45 | Inpatient (IN) | payer MEDICARE, BC ==
[~2019-04-19] VITALS: Ht 152.4 cm; Wt 71.7 kg
[~2019-04-19 21:45] MED LIST changes: +ACET-868 PO; +ALLA266C2 TP; -AMIT10TA6 PO; +BENZ0.5T43 PO; +ENOX40DI9 SQ; +LORA-259 PO; +MAG30ORA PO; +MAGN400O6 PO; +OLAN10VI IM; -PARO20TA7 PO; +RISP0.2515 PO; +RISP1TAB7 PO; +TEMA7.5C12 PO
[2019-04-19 22:00] VITALS: BP 122/71
--- NOTE | 2019-04-19 22:00 | NUR ---
[facility] ADMISSION NOTES: ADMITTED THIS 63-Y/O, FEMALE, FROM [facility], PT. ADMITTED ON 5250 FOR GD. PER HOLD, PATIENT IS PSYCHOTIC, CATATONIC, SHE HAS NO PLAN OF CARE, NOT EATING/DRINKING. UPON FACE TO FACE ASSESSMENT, PT. IS A&O X2, DEPRESSED MOOD, FLAT AFFECT, CONFUSED AT TIMES, WITHDRAWN. AMBULATORY WITH UNSTEADY GAIT. NO APPARENT DISTRESS NOTED. SKIN ASSESSMENT DONE. PT. REFUSED TO SIGN ADMISSION CONSENTS. PT'S RIGHTS HANDBOOK & PT. GUIDELINES BOOK GIVEN & DISCUSSED TO THE PATIENT. PT BELONGINGS WERE INVENTORIED & CHECKED FOR CONTRABAND. PT. IS UNDER THE PSYCHIATRIC CARE OF DR. CORMIER, ORDERS OBTAINED & UNDER THE MEDICAL CARE OF DR. ABARCA. PAGED EPIC GROUP SPOKE WITH DR. POTTER TO RECONCILE MEDS. PATIENT EDUCATED TO THE USE OF CALL VILLASENOR. BED ALARM ON. ENVIRONMENTAL SAFETY CHECK DONE. BED LOCKED & IN LOW POSITION. WILL CONTINUE TO MONITOR Q15 MINUTES FOR SAFETY & BEHAVIOR.
[2019-04-19] MEDS ORDERED: MAGNESIUM HYDROXIDE 30 ML UDC PO PRN ×2 (22:30→23:30)
[2019-04-19] MEDS ORDERED: LORAZEPAM 0.5 MG TABLET PO PRN (22:30)
[2019-04-19] MEDS ORDERED: ACETAMINOPHEN 325 MG TABLET PO PRN ×2 (22:30→23:30)
[2019-04-19] MEDS ORDERED: MAG HYDROX/AL HYDROX/SIMETH 30 ML UDC PO PRN ×2 (22:30→23:30)
[2019-04-19] MEDS ORDERED: CLOT15CR35 TP (22:54)
[2019-04-19] MEDS ORDERED: BLOOD SUGAR DIAGNOSTIC 1 EACH STRIP IN ONE (23:00)
[2019-04-19] MEDS ORDERED: LORAZEPAM 1 MG TABLET PO PRN (23:30)
[2019-04-19] MEDS: TEMAZEPAM 7.5 MG CAPSULE PO PRN (23:36)
[2019-04-20] MEDS ORDERED: LOSARTAN POTASSIUM 50 MG TABLET PO SCH (07:00)
[2019-04-20 08:00] VITALS: BP 134/74
[2019-04-20] MEDS ORDERED: OLANZAPINE 10 MG VIAL IM SCH (09:00)
[2019-04-20] MEDS ORDERED: risperiDONE 0.25 MG TABLET PO SCH (09:00)
[2019-04-20] MEDS: HYDROCHLOROTHIAZIDE 25 MG TABLET PO SCH (09:00)
[2019-04-20] MEDS ORDERED: LORAZEPAM 0.5 MG TABLET PO SCH (09:00)
[2019-04-20] MEDS ORDERED: risperiDONE 1 MG TABLET PO SCH (09:00)
[2019-04-20] MEDS ORDERED: BENZTROPINE MESYLATE 0.5 MG PO SCH (09:00)
[2019-04-20] MEDS ORDERED: OLANZAPINE 10 MG VIAL IM PRN (09:00)
[2019-04-20] MEDS ORDERED: HYDROCHLOROTHIAZIDE 12.5 MG CAPSULE PO SCH (09:00)
[2019-04-20] MEDS: LOSARTAN POTASSIUM 50 MG TABLET PO SCH (10:53)
[2019-04-20] MEDS: risperiDONE 1 MG TABLET PO SCH ×4 (10:54→21:34)
[2019-04-20] MEDS: BENZTROPINE MESYLATE (1 MG) 1 MG TABLET PO SCH ×2 (10:54→18:31)
[2019-04-20] MEDS: ENOXAPARIN SODIUM 40 MG/0.4 ML DISP.SYRIN SQ SCH (10:56)
[2019-04-20] MEDS: CLOTRIMAZOLE 1% 15 GM TUBE TP SCH ×2 (10:57→18:35)
[2019-04-20] MEDS ORDERED: LORAZEPAM 0.5 MG TABLET PO PRN (12:30)
[2019-04-20] MEDS ORDERED: SALINE NASAL SPRAY 0.65% 1 BOTTLE BOTTLE NS PRN (12:30)
[2019-04-20] MEDS: AMLODIPINE BESYLATE 10 MG TABLET PO SCH (13:45)
[2019-04-20] MEDS: Z GUARD REMEDY 4 OZ OINT TP SCH (13:50)
[2019-04-20 16:00] VITALS: BP 117/80
--- NOTE | 2019-04-20 19:03 | NUR ---
MED COMPLIANT ENTIRE DAY.APPETITE GOOD.
[2019-04-20 20:42] VITALS: BP 120/79
[2019-04-21 07:56] LABS: BASOPHILS % (AUTO) 0.9 % (0.0-2.0); EOSINOPHILS % (AUTO) 3.6 % (0.0-6.0); HEMATOCRIT 39 % (33-45); HEMOGLOBIN 13.2 g/dL (11.5-14.8); LYMPHOCYTES % (AUTO) 20.4 % (20.0-44.0); MEAN CORPUSCULAR HGB CONC 34 g/dl (31.0-36.0); MEAN CORPUSCULAR VOLUME 91 fL (82-100); MONOCYTES # (AUTO) 0.4 /CMM (0.1-1.30); MONOCYTES % (AUTO) 8.7 % (2.0-12.0); NEUTROPHILS # (AUTO) 3.1 /CMM (1.8-8.9); NEUTROPHILS % (AUTO) 66.4 % (43.0-81.0); PLATELET COUNT (AUTO) 284 /CMM (150-450); WHITE BLOOD COUNT (AUTO) 4.7 K/uL (4.3-11.0)
[2019-04-21 08:00] VITALS: BP 156/74
[2019-04-21 08:03] LABS: CREATININE 0.7 mg/dL (0.6-1.3); POTASSIUM 3.5 mmol/L (3.5-5.1)
[2019-04-21] MEDS: HYDROCHLOROTHIAZIDE 25 MG TABLET PO SCH (09:03)
[2019-04-21] MEDS: BENZTROPINE MESYLATE (1 MG) 1 MG TABLET PO SCH ×2 (09:03→17:15)
[2019-04-21] MEDS: risperiDONE 1 MG TABLET PO SCH ×4 (09:03→21:50)
[2019-04-21] MEDS: AMLODIPINE BESYLATE 10 MG TABLET PO SCH (09:04)
[2019-04-21] MEDS: CLOTRIMAZOLE 1% 15 GM TUBE TP SCH ×2 (09:04→17:15)
[2019-04-21] MEDS: Z GUARD REMEDY 4 OZ OINT TP SCH (09:05)
[2019-04-21] MEDS: LOSARTAN POTASSIUM 50 MG TABLET PO SCH (09:07)
[2019-04-21] MEDS: ENOXAPARIN SODIUM 40 MG/0.4 ML DISP.SYRIN SQ SCH (09:11)
[2019-04-21 16:00] VITALS: BP 140/81
[2019-04-21 20:12] VITALS: BP 116/78
[2019-04-22] MEDS: risperiDONE 1 MG TABLET PO SCH ×2 (08:45→20:11)
[2019-04-22] MEDS: BENZTROPINE MESYLATE (1 MG) 1 MG TABLET PO SCH ×2 (08:45→16:59)
[2019-04-22] MEDS: HYDROCHLOROTHIAZIDE 25 MG TABLET PO SCH (08:46)
[2019-04-22] MEDS: AMLODIPINE BESYLATE 10 MG TABLET PO SCH (08:46)
[2019-04-22] MEDS: ENOXAPARIN SODIUM 40 MG/0.4 ML DISP.SYRIN SQ SCH (08:48)
[2019-04-22] MEDS: LOSARTAN POTASSIUM 50 MG TABLET PO SCH (08:49)
[2019-04-22] MEDS: CLOTRIMAZOLE 1% 15 GM TUBE TP SCH ×2 (09:01→16:59)
[2019-04-22] MEDS: Z GUARD REMEDY 4 OZ OINT TP SCH (09:01)
[2019-04-22 09:03] VITALS: BP 110/87
--- NOTE | 2019-04-22 09:42 | NUR ---
UR NOTE: SAMUEL contacted [facility] and spoke with Lauren Downs [phone]. Lauren stated [facility] did a precert penalty for the . Pt is authorized 3 days with review due on the . Auth for is [id number]. Authorization for is [id number].
--- NOTE | 2019-04-22 09:45 | NUR ---
Psychosocial Note: I, Yina Hammond INDUSTRIAL RELATIONS WORKER, attest to the patients previous psychosocial information dated 04/09/19. Update On Events leading to Admission and Discharge Plan: Pt has returned to [facility] within 5 days of her previous discharge date. The current plan is to increase the patient on her medications and discharge her to a SNF. Upon social work evaluation, pt presents laying in bed with minimal communication and only stating "not feeling good." Pt was unable to verbalize what she was feeling and has restricted speech and eye contact. Pts mood appears depressed with flat affect. Pt denied visual/auditory hallucinations. Pt has limited ambulation due to her unsteady gait, well-groomed and appropriately dressed. SAMUEL spoke with pts sister Vidya [phone] and stated that she wishes for pt to be discharged to a SNF closer to home and requested pt be referred to [facility] Address: [address] [place] [id number] . SAMUEL will work with family and the MD regarding appropriate discharge planning. SAMUEL will form a safe and proper discharge.
--- NOTE | 2019-04-22 10:24 | NUR ---
SNF REFERRAL: SAMUEL faxed SNF referrals to [facility] Address: [address] [place] [address] and [facility] Address: [address] [place] [address] for review.
[2019-04-22 16:20] VITALS: BP 101/74
--- NOTE | 2019-04-23 02:43 | NUR ---
[facility] RN NOTES: UPON ROUNDS, PT AWAKE IN BED. ASKED PT HOW SHE IS FEELING AND IF SHE NEEDS ANYTHING. PT STATED, " NO I CANT SLEEP." OFFERED SLEEPING MEDICATION ORDERED. PT REFUSED. EXPLAIN RISKS AND BENEFITS. PT STILL REFUSED X3. PT STATED, "MAYBE TOMORROW NIGHT IF I CANT SLEEP ILL TAKE IT, BUT NOT RIGHT NOW." CONTINUE TO MONITOR.
--- NOTE | 2019-04-23 06:35 | NUR ---
[facility] RN NOTES: DURING PM SHIFT NO S/S OF LOOSE STOOLS AT THE MOMENT. NO S/S OF PAIN OR DISCOMFORT. WILL CONTINUE TO MONITOR.
[2019-04-23] MEDS: risperiDONE 1 MG TABLET PO SCH ×3 (07:41→20:59)
[2019-04-23 08:00] VITALS: BP 131/74
--- NOTE | 2019-04-23 08:13 | NUR ---
SNF: SW received a call from Anastasiia, merchandise coordinator at [facility] Address: [address], [place] [address] stating pt has been accepted to their facility. Per Anastasiia, foster care case manager referred pt when she was in Med/Surg.
[2019-04-23] MEDS: LOSARTAN POTASSIUM 50 MG TABLET PO SCH (08:55)
[2019-04-23] MEDS: HYDROCHLOROTHIAZIDE 25 MG TABLET PO SCH (08:59)
[2019-04-23] MEDS: BENZTROPINE MESYLATE (1 MG) 1 MG TABLET PO SCH ×2 (09:00→17:02)
[2019-04-23] MEDS ORDERED: LOSARTAN POTASSIUM 25 MG TABLET PO ONE (09:00)
[2019-04-23] MEDS: AMLODIPINE BESYLATE 10 MG TABLET PO SCH (09:00)
--- NOTE | 2019-04-23 09:00 | NUR ---
SNF CONTACT: SW called [facility] Address: [address], [place] [address] and was asked to call back at 12:30pm due to training coordinator not being in until then.
[2019-04-23] MEDS: ENOXAPARIN SODIUM 40 MG/0.4 ML DISP.SYRIN SQ SCH (09:02)
[2019-04-23] MEDS: Z GUARD REMEDY 4 OZ OINT TP SCH (09:07)
[2019-04-23] MEDS: CLOTRIMAZOLE 1% 15 GM TUBE TP SCH ×2 (09:07→17:02)
--- NOTE | 2019-04-23 10:30 | NUR ---
FAMILY CONTACT: SW received a call from pts sister Vidya [phone] who requested an update on pts discharge. SW informed her that pt will be discharged on 04/25/19 to [facility] as [facility] has not called SW with an update. Sister requested SW keep trying to reach [facility] for admission. Sister stated that if [facility] denies she is agreeable to pts discharge to [facility].
--- NOTE | 2019-04-23 13:00 | NUR ---
SNF CONTACT: SAMUEL called [facility] Address: [address] [facility], [place] [address] and spoke with rn clinical coordinator who stated referral was still being reviewed by NICOLE.
--- NOTE | 2019-04-23 14:29 | NUR ---
FAMILY CONTACT: SAMUEL spoke with pts sister Vidya [phone] and informed her pt will be discharged on 04/25/19 to [facility], sister agreed with discharge plan.
--- NOTE | 2019-04-23 14:43 | NUR ---
SNF CONTACT: SW called [facility] Address: [facility] [address] [facility], [place] [address] and was told by guidance secretary that drug abuse program coordinator was not available.
--- NOTE | 2019-04-23 14:46 | NUR ---
DISCHARGE NOTE: Pt will be discharged on 04/25/19 at 1:00pm via [facility] to [facility] [address] [place] [place] [phone] . Pt's sister Vidya [phone] has been notified and agrees with discharge plan. Pts mood appears euthymic with congruent affect. Pt denied visual/auditory hallucinations and denied suicidal/homicidal ideation. Pt will be under the care of Psychiatrist: Dr. Merissa Munroe [address] [place] [phone] and Business Area Director: Dr Mccarthy Address: [address] [place] [address] . The multidisciplinary exitcare form was done, printed, signed, and given to the patient.
[2019-04-23 15:30] LABS: BASOPHILS # (AUTO) 0.1 /CMM (0.0-0.2); BASOPHILS % (AUTO) 2.3 % (0.0-2.0); EOSINOPHILS % (AUTO) 2.7 % (0.0-6.0); HEMATOCRIT 42 % (33-45); HEMOGLOBIN 13.8 g/dL (11.5-14.8); LYMPHOCYTES # (AUTO) 0.8 /CMM (0.8-4.8); LYMPHOCYTES % (AUTO) 14.9 % (20.0-44.0); MEAN CORPUSCULAR HGB CONC 33 g/dl (31.0-36.0); MEAN CORPUSCULAR VOLUME 91 fL (82-100); MONOCYTES # (AUTO) 0.3 /CMM (0.1-1.30); MONOCYTES % (AUTO) 6.7 % (2.0-12.0); NEUTROPHILS # (AUTO) 3.8 /CMM (1.8-8.9); NEUTROPHILS % (AUTO) 73.4 % (43.0-81.0); PLATELET COUNT (AUTO) 350 /CMM (150-450); RED BLOOD CELL COUNT(AUTO) 4.59 MIL/uL (4.0-5.2); WHITE BLOOD COUNT (AUTO) 5.2 K/uL (4.3-11.0)
[2019-04-23 16:00] VITALS: BP 104/71
[2019-04-23 21:13] VITALS: BP 104/66
[2019-04-23] MEDS: TEMAZEPAM 7.5 MG CAPSULE PO PRN (22:01)
[2019-04-24] MEDS: risperiDONE 1 MG TABLET PO SCH ×3 (07:30→20:55)
[2019-04-24] MEDS: LOSARTAN POTASSIUM 50 MG TABLET PO SCH (08:36)
[2019-04-24] MEDS: BENZTROPINE MESYLATE (1 MG) 1 MG TABLET PO SCH ×2 (08:36→16:13)
[2019-04-24] MEDS: HYDROCHLOROTHIAZIDE 25 MG TABLET PO SCH (08:37)
[2019-04-24] MEDS: AMLODIPINE BESYLATE 10 MG TABLET PO SCH (08:38)
[2019-04-24] MEDS: ENOXAPARIN SODIUM 40 MG/0.4 ML DISP.SYRIN SQ SCH (08:40)
[2019-04-24] MEDS: CLOTRIMAZOLE 1% 15 GM TUBE TP SCH ×2 (08:48→16:17)
[2019-04-24] MEDS: Z GUARD REMEDY 4 OZ OINT TP SCH (08:48)
[2019-04-24 08:54] VITALS: BP 98/67
[2019-04-24 16:00] VITALS: BP 102/68
[2019-04-24 21:05] VITALS: BP 110/67
--- NOTE | 2019-04-25 01:41 | NUR ---
[facility] RN NOTES: UPON ROUNDS, PT AWAKE IN BED. ASKED PT HOW SHE IS FEELING AND IF SHE NEEDS ANYTHING. PT STATED, " NO I CANT SLEEP." OFFERED SLEEPING MEDICATION ORDERED. PT REFUSED. EXPLAIN RISKS AND BENEFITS. PT STILL REFUSED X3. PT STATED, "I DONT WANT THAT. NO THANK YOU." CONTINUE TO MONITOR.
[2019-04-25 08:00] VITALS: BP 122/70
[2019-04-25] MEDS: risperiDONE 1 MG TABLET PO SCH ×2 (08:33→12:09)
[2019-04-25] MEDS: BENZTROPINE MESYLATE (1 MG) 1 MG TABLET PO SCH (08:33)
[2019-04-25] MEDS: AMLODIPINE BESYLATE 10 MG TABLET PO SCH (08:33)
[2019-04-25] MEDS: HYDROCHLOROTHIAZIDE 25 MG TABLET PO SCH (08:34)
[2019-04-25] MEDS: LOSARTAN POTASSIUM 50 MG TABLET PO SCH ×2 (08:35→09:52)
[2019-04-25] MEDS: ENOXAPARIN SODIUM 40 MG/0.4 ML DISP.SYRIN SQ SCH (08:36)
[2019-04-25] MEDS: CLOTRIMAZOLE 1% 15 GM TUBE TP SCH (09:22)
[2019-04-25] MEDS: Z GUARD REMEDY 4 OZ OINT TP SCH (09:23)
--- NOTE | 2019-04-25 09:40 | NUR ---
DR. CORMIER GAVE AN ORDER TO D/C [facility] AND D/C TO [facility], TO CONTINUE SAME MEDS INCLUDING PRN AND TO FOLLOW UP WITH PSYCH AND MEDICAL DOCTORS. Addendum: 04/25/19 at 1616 by PINKY CASTANEDA RN PT. DENIES SUICIDAL AND HOMICIDAL.
[2019-04-25 09:52] VITALS: BP 121/73
--- NOTE | 2019-04-25 13:11 | NUR ---
PRINTING EQUIPMENT MECHANIC APPRENTICE NOTE PATIENT WAS DISCHARGED. WAS PICKED UP BY AMBULANCE PERSONNEL, GOING TO [facility]. CALLED FOR REPORT, SPOKE TO FRANCISCA HANEY. PICTURES TAKEN. FLORINDA STEWART DNP WAS AWARE OF THE DISCHARGE. MED RECON WAS GIVEN, ATTACHED IN PATIENT'S EXIT CARE PACKET. PATIENT WAS NOT IN DISTRESS AND WAS CALM WHEN PICKED UP. FAMILY AWARE ABOUT THE DC.
== END 2019-04-25 13:00 | DRG 885 ==
LOC: GPS 21:45
PROVIDERS: ADMIT Psychiatry & Neurology Psychiatry
DX: F25.0 Schizoaffective disorder, bipolar type (principal); F23 Brief psychotic disorder; F32.9 Major depressive disorder, single episode, unspecified; F43.10 Post-traumatic stress disorder, unspecified; I10 Essential (primary) hypertension; Z88.2 Allergy status to sulfonamides; Z88.0 Allergy status to penicillin
CPT/HCPCS: 36415; 80048-TC; 80061-TC; 82962-TC; 85025-TC; 92611-TC; 97116-TC; 97530-TC; J1650